=== PATIENT | male | born 1975 | race Caucasian/White ===

== ENCOUNTER 2023-09-17 10:31 | Day surgery (SDC) | payer MEDICAID ==
[2023-09-09 15:38] LABS: BASOPHILS # (AUTO) 0.1 X10'3 (0-0.2); BASOPHILS % (AUTO) 0.6 % (0-1); EOSINOPHILS # (AUTO) 0.2 X10'3 (0-0.9); EOSINOPHILS % (AUTO) 1.7 % (0-6); LYMPHOCYTES # (AUTO) 3.7 X10'3 (1.1-4.8); LYMPHOCYTES % (AUTO) 33.7 % (21-51); MEAN CORPUSCULAR HEMOGLOBIN 26.3 PG (27.0-31.0); MEAN CORPUSCULAR HGB CONC 32.9 g/dL (33.0-36.5); MEAN CORPUSCULAR VOLUME 79.8 FL (78-98); MEAN PLATELET VOLUME 8.1 FL (7.4-10.4); MONOCYTES # (AUTO) 0.8 X10'3 (0-0.9); MONOCYTES % (AUTO) 6.9 % (2-12); NEUTROPHILS # (AUTO) 6.2 X10'3 (1.8-7.7); NEUTROPHILS % (AUTO) 57.1 % (42-75); PRE OP HEMATOCRIT 44.4 % (42.0-52.0); PRE OP HEMOGLOBIN 14.6 g/dL (14.0-17.9); PRE OP PLATELET COUNT 235 X10'3 (140-440); PRE OP WHITE BLOOD COUNT 10.9 10'3 (4.8-10.8); RED BLOOD COUNT 5.56 X10'6 (4.70-6.10)
[2023-09-09 15:44] LABS: ALBUMIN 3.8 G/DL (3.4-5.0); ALBUMIN/GLOBULIN RATIO 1.1 (1.1-1.5); ALKALINE PHOSPHATASE 69 IU/L (46-116); BLOOD UREA NITROGEN 16 MG/DL (7-18); BUN/CREATININE RATIO 16.8 (10.0-20.0); CALCIUM 8.5 MG/DL (8.5-10.1); CHLORIDE 102 MMOL/L (99-107); CREATININE 0.95 MG/DL (0.60-1.10); PRE OP ANION GAP 3 (8-16); PRE OP AST 19 U/L (10-37); PRE OP BILIRUB, TOTAL 0.3 MG/DL (0.0-1.0); PRE OP GLUCOSE 82 MG/DL (70-104); PRE OP POTASSIUM 3.8 MMOL/L (3.4-5.1); PRE OP SODIUM 136 MMOL/L (135-145); TOTAL CARBON DIOXIDE 30.8 MMOL/L (24-32); TOTAL PROTEIN 7.2 G/DL (6.4-8.2); eGFR 85 ML/MIN
[2023-09-09 15:57] LABS: PRE OP ALT 15 U/L (30-65)
[~2023-09-17] VITALS: Ht 180.3 cm; Wt 72.6 kg
[2023-09-17] VITALS (8 sets, daily range): BP systolic 115–138; BP diastolic 72–97; PULSE 51–87; RESP 9–20; TEMP 97.8; O2SAT 60–100
[~2023-09-17 10:31] MED LIST: ACET-890 PO; IBUP-1985 PO; NICO-687 TD; vitamin d PO
[2023-09-17] MEDS: famotidine 20mg tablet PO ONE (10:48)
[2023-09-17] MEDS: ringers solution, lacted 1,000 ML IV SCH (10:48)
[2023-09-17] MEDS ORDERED: sevoflurane 250ml liquid IH ONE (11:06)
[2023-09-17] MEDS ORDERED: proCHLORperazine 10 MG/2 ml inj IV PRN (11:10)
[2023-09-17] MEDS ORDERED: morphine 2 MG/ML inj. syringe IV PRN (11:10)
[2023-09-17] MEDS ORDERED: ondansetron/PF 4mg/2ml inj IV PRN (11:10)
[2023-09-17] MEDS ORDERED: meperidine/PF 25mg/ml syringe IV PRN ×3 (11:10)
[2023-09-17] MEDS ORDERED: ringers solution, lacted 1,000 ML IV SCH (11:10)
[2023-09-17] MEDS ORDERED: enalaprilat dihydrate 2.5mg/2ml vial IV PRN (11:10)
[2023-09-17] MEDS ORDERED: morphine 4 MG/ML inj SYRINge IV PRN (11:10)
[2023-09-17] MEDS ORDERED: labetalol 20mg/4ml (5mg/ml) syringe IV PRN (11:10)
[2023-09-17] MEDS ORDERED: fentaNYL/PF 50MCG/1 ML 2ML syringe ONE (11:11)
[2023-09-17] MEDS ORDERED: midazolam 1 mg/ML 2ml injection ONE (11:12)
[2023-09-17] MEDS ORDERED: rocuronium 10mg/ml inj IV ONE (11:13)
[2023-09-17] MEDS ORDERED: propofol inj 20 ML IV ONE (11:13)
[2023-09-17] MEDS ORDERED: ondansetron/PF 4mg/2ml inj ONE (11:53)
[2023-09-17] MEDS ORDERED: dexamethasone sod phosphate 4mg/ml inj. ONE (11:53)
== END 2023-09-17 13:24 | disposition home or self-care (01) ==
LOC: PAS 10:31
PROVIDERS: ATTEND Internal Medicine Critical Care Medicine
DX: R91.8 Other nonspecific abnormal finding of lung field (principal); R00.1 Bradycardia, unspecified; J43.9 Emphysema, unspecified; I20.9 Angina pectoris, unspecified; Z79.1 Long term (current) use of non-steroidal anti-inflammatories (NSAID); Z79.891 Long term (current) use of opiate analgesic; Z79.899 Other long term (current) drug therapy; Z98.890 Other specified postprocedural states
CPT/HCPCS: 31627; 31629; 31653; 36415; 71045; 71250; 80053; 82948; 85025; 87015; 87070; 87102; 87116; 87206; 93005; J1100; J2250; J2405; J2704; J2710; J3010; J3490; J7120; Z7506; Z7508; Z7512; A4618

== ENCOUNTER 2024-02-11 07:37 | Inpatient (IN) | payer MEDICAID ==
[2024-02-07 15:55] LABS: BASOPHILS # (AUTO) 0.1 X10'3 (0-0.2); BASOPHILS % (AUTO) 0.6 % (0-1); EOSINOPHILS # (AUTO) 0.1 X10'3 (0-0.9); EOSINOPHILS % (AUTO) 1.2 % (0-6); LYMPHOCYTES # (AUTO) 2.6 X10'3 (1.1-4.8); LYMPHOCYTES % (AUTO) 27.3 % (21-51); MEAN CORPUSCULAR HEMOGLOBIN 27.6 PG (27.0-31.0); MEAN CORPUSCULAR HGB CONC 33.5 g/dL (33.0-36.5); MEAN CORPUSCULAR VOLUME 82.6 FL (78-98); MEAN PLATELET VOLUME 8.2 FL (7.4-10.4); MONOCYTES # (AUTO) 0.6 X10'3 (0-0.9); MONOCYTES % (AUTO) 6.5 % (2-12); NEUTROPHILS # (AUTO) 6.2 X10'3 (1.8-7.7); NEUTROPHILS % (AUTO) 64.4 % (42-75); PRE OP HEMATOCRIT 44.6 % (42.0-52.0); PRE OP HEMOGLOBIN 14.9 g/dL (14.0-17.9); PRE OP PLATELET COUNT 243 X10'3 (140-440); PRE OP WHITE BLOOD COUNT 9.6 10'3 (4.8-10.8); RED CELL DISTRIBUTION WIDTH 14.1 % (11.5-14.5)
[2024-02-07 16:00] LABS: BILIRUBIN,URINE NEGATIVE (Neg); CLARITY,URINE CLEAR (Clear); COLOR,URINE YELLOW (Yellow); GLUCOSE, URINE NEGATIVE (Neg); KETONES,URINE NEGATIVE (Neg); LEUKOCYTE ESTERASE ,URINE NEGATIVE (Neg); NITRITES, URINE NEGATIVE (Neg); OCCULT BLOOD,URINE NEGATIVE (Neg); PH,URINE 5.5 (4.8-8.0); PROTEIN,URINE NEGATIVE (Neg); UROBILINOGEN,URINE 0.2 E.U/dL (0.2-1.0)
[2024-02-07 16:08] LABS: UA COLLECTION TYPE CLN CATCH MIDSTREAM
[2024-02-07 16:20] LABS: PRE OP PROTIME 10.1 SECONDS (9.0-12.0)
[2024-02-07 16:21] LABS: ALBUMIN 3.8 G/DL (3.4-5.0); ALBUMIN/GLOBULIN RATIO 1.2 (1.1-1.5); ALKALINE PHOSPHATASE 72 IU/L (46-116); BLOOD UREA NITROGEN 14 MG/DL (7-18); BUN/CREATININE RATIO 15.6 (10.0-20.0); CALCIUM 9.1 MG/DL (8.5-10.1); CHLORIDE 105 MMOL/L (99-107); PRE OP ALT 22 U/L (30-65); PRE OP ANION GAP 9 (8-16); PRE OP AST 16 U/L (10-37); PRE OP BILIRUB, TOTAL 0.3 MG/DL (0.0-1.0); PRE OP GLUCOSE 92 MG/DL (70-104); PRE OP SODIUM 142 MMOL/L (135-145); TOTAL CARBON DIOXIDE 27.8 MMOL/L (24-32); eGFR 90 ML/MIN
[~2024-02-11] VITALS: Ht 180.3 cm; Wt 71.0 kg
[2024-02-11] VITALS (34 sets, daily range): BP systolic 105–154; BP diastolic 68–101; PULSE 65–97; RESP 10–27; TEMP 97.7–98.9; O2SAT 90–100
[2024-02-11] MEDS: ringers solution, lacted 1,000 ML IV SCH ×2 (05:30→13:08)
[2024-02-11] MEDS: BUPIVACAINE liposomal/PF 13.3 MG/ML vial IM ONE (07:27)
[2024-02-11] MEDS: BUPIVAcaine 2.5mg/ml inj 50ml vial (contains preservative) ONE (07:27)
[~2024-02-11 07:37] MED LIST changes: -ACET-890 PO; -vitamin d PO
[2024-02-11] MEDS: INDOCYANINE GREEN 25 MG/10 ML VIAL IV ONE (08:40)
[2024-02-11] MEDS: cefazolin 2gm/D5W 100mL 100 ML IV ONE (08:40)
[2024-02-11] MEDS ORDERED: sterile Talc 2 GM powder vial ONE (09:00)
[2024-02-11] MEDS: famotidine 20mg tablet PO ONE (09:01)
[2024-02-11] MEDS ORDERED: fentaNYL /PF 50mcg/ml 5ml ampule ONE (09:28)
[2024-02-11] MEDS ORDERED: midazolam 1 mg/ML 2ml injection ONE (09:28)
[2024-02-11] MEDS ORDERED: acetaminophen 1,000mg/100ml IV 100 ML IV ONE (09:29)
[2024-02-11] MEDS ORDERED: propofol inj 20 ML IV ONE (09:30)
[2024-02-11] MEDS ORDERED: rocuronium 10mg/ml inj IV ONE ×2 (09:30)
[2024-02-11] MEDS ORDERED: dexamethasone sod phosphate 4mg/ml inj. ONE (09:30)
[2024-02-11] MEDS ORDERED: LIDOcaine 2% (20mg/ml) 5ml vial ONE (09:30)
[2024-02-11] MEDS ORDERED: sevoflurane 250ml liquid IH ONE (09:40)
[2024-02-11] MEDS ORDERED: ondansetron/PF 4mg/2ml inj ONE (10:24)
[2024-02-11] MEDS ORDERED: labetalol 20mg/4ml (5mg/ml) syringe IV ONE (10:36)
[2024-02-11] MEDS ORDERED: sugammadex 200mg/2ml injection IV ONE (11:53)
[2024-02-11] MEDS ORDERED: ketorolac trometh 15mg/ml vial 15 MG/ML ML IV PRN (12:25)
[2024-02-11] MEDS ORDERED: ondansetron/PF 4mg/2ml inj IV PRN ×2 (12:25→12:45)
[2024-02-11] MEDS ORDERED: metoclopramide 5 mg/ml inj IV PRN (12:25)
[2024-02-11] MEDS: morphine 4 MG/ML inj SYRINge IV PRN ×2 (12:37→12:59)
[2024-02-11] MEDS ORDERED: fentaNYL/PF 50MCG/1 ML 2ML syringe IV PRN ×2 (12:45)
[2024-02-11] MEDS ORDERED: morphine 2 MG/ML inj. syringe IV PRN (12:45)
[2024-02-11] MEDS ORDERED: hydrALAZINE 20mg/ml inj. IV PRN (12:45)
[2024-02-11] MEDS ORDERED: labetalol 20mg/4ml (5mg/ml) syringe IV PRN (12:45)
[2024-02-11 12:48] LABS: ABG OXYGEN SATURATION 97.8 % (94.0-98.0); ABG PCO2 (T) 40.7 mmHg (35.0-48.0); ABG PH (T) 7.344 (7.350-7.450); ABG PO2 (T) 94.2 mmHg (83.0-108.0); FCOHb 2.1 % (0.5-1.5); FHHb 2.1 % (0.0-5.0); FMetHb 0.3 % (0.0-1.5); FO2Hb 95.5 % (94.0-98.0); MODE MASK - SIMPLE; PATIENT TEMPERATURE 35.4; TOTAL HEMOGLOBIN 15.7 G/dl (13.5-17.5)
[2024-02-11] MEDS: ketorolac trometh 30MG/ML vial 30 MG/ML VIAL IV PRN (12:59)
[2024-02-11] MEDS: albuterol 2.5 MG/3 ML nebule NEB ONE (13:33)
[2024-02-11] MEDS ORDERED: naloxone 0.4 mg/ml inj IV PRN (13:55)
[2024-02-11] MEDS: normal saline 1000ml 1,000 ML IV SCH (13:55)
[2024-02-11] MEDS: HYDROmorph/NS 0.2 mg/ml PCA 100 ML IV SCH ×2 (14:31→20:56)
[2024-02-11] MEDS: potassium Cl 20mEq in D5-NS 1,000 ML IV SCH (18:12)
[2024-02-11] MEDS: sennosides/docusate sodium tablet PO SCH (20:24)
[2024-02-11] MEDS: docusate sod 100mg capsule PO SCH (20:24)
[2024-02-11] MEDS: ceFAZolin inj. 1,000 MG in dextrose 5%-water 50ml 50 ML IV SCH (20:24)
[2024-02-11] MEDS: gabapentin 300mg capsule PO SCH (20:24)
[2024-02-12] VITALS (14 sets, daily range): BP systolic 105–123; BP diastolic 70–84; PULSE 73–88; RESP 12–22; TEMP 97.5–98.3; O2SAT 84–97
[2024-02-12 05:40] LABS: BASOPHILS % (AUTO) 0.3 % (0-1); EOSINOPHILS % (AUTO) 0 % (0-6); HEMATOCRIT 42.7 % (42.0-52.0); HEMOGLOBIN 13.8 g/dl (14.0-17.9); LYMPHOCYTES # (AUTO) 2.4 X10'3 (1.1-4.8); LYMPHOCYTES % (AUTO) 18.2 % (21-51); MEAN CORPUSCULAR HEMOGLOBIN 26.4 PG (27.0-31.0); MEAN CORPUSCULAR HGB CONC 32.3 g/dL (33.0-36.5); MEAN CORPUSCULAR VOLUME 81.8 FL (78-98); MEAN PLATELET VOLUME 8.1 FL (7.4-10.4); MONOCYTES # (AUTO) 0.9 X10'3 (0-0.9); MONOCYTES % (AUTO) 7.1 % (2-12); NEUTROPHILS # (AUTO) 9.9 X10'3 (1.8-7.7); NEUTROPHILS % (AUTO) 74.4 % (42-75); PLATELET COUNT 254 X10'3 (140-440); RED BLOOD COUNT 5.22 X10'6 (4.70-6.10); RED CELL DISTRIBUTION WIDTH 13.7 % (11.5-14.5); WHITE BLOOD COUNT 13.3 X10'3 (4.5-11.0)
[2024-02-12 06:06] LABS: ALANINE AMINOTRANSFERASE 21 U/L (12-78); ALBUMIN 3.3 G/DL (3.4-5.0); ALBUMIN/GLOBULIN RATIO 0.9 (1.1-1.5); ALKALINE PHOSPHATASE 60 IU/L (46-116); ANION GAP 8 (8-16); ASPARTATE AMINO TRANSFERASE 29 U/L (10-37); BILIRUBIN,TOTAL 0.4 MG/DL (0.1-1.0); BLOOD UREA NITROGEN 11 MG/DL (7-18); BUN/CREATININE RATIO 13.9 (10.0-20.0); CALCIUM 8.8 MG/DL (8.5-10.1); CHLORIDE 102 MMOL/L (99-107); CREATININE 0.79 MG/DL (0.60-1.10); GLUCOSE 131 MG/DL (70-104); MAGNESIUM 1.8 MG/DL (1.5-2.4); PHOSPHORUS 2.5 MG/DL (2.3-4.5); POTASSIUM 4.2 MMOL/L (3.5-5.1); SODIUM 137 MMOL/L (135-145); TOTAL CARBON DIOXIDE 26.9 MMOL/L (24-32); TOTAL PROTEIN 6.8 G/DL (6.4-8.2); eCRCL 115 ML/MIN; eGFR > 90 ML/MIN
[2024-02-12] MEDS: nicotine 21mg patch - 24 hr TD SCH (14:41)
[2024-02-12] MEDS: ceFAZolin/D5W- 1GM premix 50 ML IV SCH (17:13)
[2024-02-13] VITALS (10 sets, daily range): BP systolic 106–130; BP diastolic 69–80; PULSE 75–94; RESP 11–18; TEMP 97.3–100.4; O2SAT 93–95
[2024-02-13] MEDS: PCA WASTE DOCUMENTATION 1 MG ML MC SCH (00:13)
[2024-02-13 07:08] LABS: BASOPHILS % (AUTO) 0.4 % (0-1); EOSINOPHILS # (AUTO) 0.1 X10'3 (0-0.9); EOSINOPHILS % (AUTO) 0.5 % (0-6); HEMATOCRIT 40.2 % (42.0-52.0); HEMOGLOBIN 13.1 g/dl (14.0-17.9); LYMPHOCYTES # (AUTO) 3.2 X10'3 (1.1-4.8); LYMPHOCYTES % (AUTO) 28.8 % (21-51); MEAN CORPUSCULAR HEMOGLOBIN 26.9 PG (27.0-31.0); MEAN CORPUSCULAR HGB CONC 32.5 g/dL (33.0-36.5); MEAN CORPUSCULAR VOLUME 82.7 FL (78-98); MEAN PLATELET VOLUME 8.5 FL (7.4-10.4); MONOCYTES # (AUTO) 0.9 X10'3 (0-0.9); MONOCYTES % (AUTO) 8.4 % (2-12); NEUTROPHILS # (AUTO) 6.8 X10'3 (1.8-7.7); NEUTROPHILS % (AUTO) 61.9 % (42-75); PLATELET COUNT 230 X10'3 (140-440); RED BLOOD COUNT 4.86 X10'6 (4.70-6.10); RED CELL DISTRIBUTION WIDTH 13.7 % (11.5-14.5)
[2024-02-13 07:46] LABS: ALANINE AMINOTRANSFERASE 22 U/L (12-78); ALBUMIN 3.1 G/DL (3.4-5.0); ALBUMIN/GLOBULIN RATIO 0.9 (1.1-1.5); ALKALINE PHOSPHATASE 54 IU/L (46-116); ANION GAP 8 (8-16); ASPARTATE AMINO TRANSFERASE 29 U/L (10-37); BILIRUBIN,TOTAL 0.5 MG/DL (0.1-1.0); BLOOD UREA NITROGEN 10 MG/DL (7-18); BUN/CREATININE RATIO 15.4 (10.0-20.0); CALCIUM 8.9 MG/DL (8.5-10.1); CHLORIDE 102 MMOL/L (99-107); CREATININE 0.65 MG/DL (0.60-1.10); GLUCOSE 104 MG/DL (70-104); MAGNESIUM 1.7 MG/DL (1.5-2.4); PHOSPHORUS 2.8 MG/DL (2.3-4.5); SODIUM 137 MMOL/L (135-145); TOTAL CARBON DIOXIDE 26.7 MMOL/L (24-32); TOTAL PROTEIN 6.7 G/DL (6.4-8.2); eCRCL 140 ML/MIN; eGFR > 90 ML/MIN
[2024-02-13 07:49] LABS: POTASSIUM 4.5 MMOL/L (3.5-5.1)
[2024-02-13] MEDS ORDERED: nicotine 21mg patch - 24 hr TD SCH (14:00)
[2024-02-13] MEDS: HYDROcodone/acetaminophen 10/325mg tab PO PRN ×2 (14:13→20:15)
[2024-02-13] MEDS: albuterol 2.5 MG/3 ML nebule NEB PRN (19:43)
[2024-02-13] MEDS: morphine 2 MG/ML inj. syringe IV PRN (23:20)
[2024-02-14] VITALS (10 sets, daily range): BP systolic 100–122; BP diastolic 67–81; PULSE 60–80; RESP 11–18; TEMP 97.3–98.5; O2SAT 94–98
[2024-02-14 06:36] LABS: BASOPHILS % (AUTO) 0.3 % (0-1); EOSINOPHILS # (AUTO) 0.1 X10'3 (0-0.9); EOSINOPHILS % (AUTO) 1.3 % (0-6); HEMATOCRIT 41.4 % (42.0-52.0); HEMOGLOBIN 13.4 g/dl (14.0-17.9); LYMPHOCYTES # (AUTO) 3.2 X10'3 (1.1-4.8); LYMPHOCYTES % (AUTO) 28.3 % (21-51); MEAN CORPUSCULAR HEMOGLOBIN 26.9 PG (27.0-31.0); MEAN CORPUSCULAR HGB CONC 32.3 g/dL (33.0-36.5); MEAN CORPUSCULAR VOLUME 83.1 FL (78-98); MEAN PLATELET VOLUME 8.3 FL (7.4-10.4); MONOCYTES % (AUTO) 8.5 % (2-12); NEUTROPHILS % (AUTO) 61.6 % (42-75); PLATELET COUNT 237 X10'3 (140-440); RED BLOOD COUNT 4.98 X10'6 (4.70-6.10); RED CELL DISTRIBUTION WIDTH 13.5 % (11.5-14.5); WHITE BLOOD COUNT 11.3 X10'3 (4.5-11.0)
[2024-02-14 06:48] LABS: ALANINE AMINOTRANSFERASE 21 U/L (12-78); ALBUMIN 3.1 G/DL (3.4-5.0); ALBUMIN/GLOBULIN RATIO 0.8 (1.1-1.5); ALKALINE PHOSPHATASE 59 IU/L (46-116); ANION GAP 6 (8-16); ASPARTATE AMINO TRANSFERASE 20 U/L (10-37); BILIRUBIN,TOTAL 0.7 MG/DL (0.1-1.0); BLOOD UREA NITROGEN 11 MG/DL (7-18); BUN/CREATININE RATIO 14.5 (10.0-20.0); CALCIUM 9.2 MG/DL (8.5-10.1); CHLORIDE 101 MMOL/L (99-107); CREATININE 0.76 MG/DL (0.60-1.10); GLUCOSE 101 MG/DL (70-104); MAGNESIUM 1.7 MG/DL (1.5-2.4); POTASSIUM 4.4 MMOL/L (3.5-5.1); SODIUM 138 MMOL/L (135-145); TOTAL CARBON DIOXIDE 30.9 MMOL/L (24-32); eCRCL 119 ML/MIN; eGFR > 90 ML/MIN
[2024-02-14] MEDS: ceFAZolin/D5W- 1GM premix 50 ML IV SCH (16:43)
[2024-02-14] MEDS ORDERED: magnesium hydroxide 30ml (MOM) UD suspension PO ONE (20:55)
[2024-02-14] MEDS ORDERED: magnesium hydroxide 30ml (MOM) UD suspension PO PRN (21:45)
[2024-02-15] VITALS (11 sets, daily range): BP systolic 108–126; BP diastolic 73–80; PULSE 66–97; RESP 15–22; TEMP 97.6–108; O2SAT 90–97
[2024-02-15 06:33] LABS: BASOPHILS % (AUTO) 0.4 % (0-1); EOSINOPHILS # (AUTO) 0.3 X10'3 (0-0.9); EOSINOPHILS % (AUTO) 2.9 % (0-6); HEMOGLOBIN 13.8 g/dl (14.0-17.9); LYMPHOCYTES % (AUTO) 28.3 % (21-51); MEAN CORPUSCULAR HEMOGLOBIN 26.7 PG (27.0-31.0); MEAN CORPUSCULAR HGB CONC 32.8 g/dL (33.0-36.5); MEAN CORPUSCULAR VOLUME 81.5 FL (78-98); MEAN PLATELET VOLUME 8.1 FL (7.4-10.4); MONOCYTES # (AUTO) 0.8 X10'3 (0-0.9); MONOCYTES % (AUTO) 7.3 % (2-12); NEUTROPHILS # (AUTO) 6.5 X10'3 (1.8-7.7); NEUTROPHILS % (AUTO) 61.1 % (42-75); PLATELET COUNT 264 X10'3 (140-440); RED BLOOD COUNT 5.15 X10'6 (4.70-6.10); RED CELL DISTRIBUTION WIDTH 13.4 % (11.5-14.5); WHITE BLOOD COUNT 10.6 X10'3 (4.5-11.0)
[2024-02-15 06:52] LABS: ALANINE AMINOTRANSFERASE 21 U/L (12-78); ALBUMIN 3.1 G/DL (3.4-5.0); ALBUMIN/GLOBULIN RATIO 0.8 (1.1-1.5); ALKALINE PHOSPHATASE 61 IU/L (46-116); ANION GAP 10 (8-16); ASPARTATE AMINO TRANSFERASE 19 U/L (10-37); BILIRUBIN,TOTAL 0.6 MG/DL (0.1-1.0); BLOOD UREA NITROGEN 13 MG/DL (7-18); BUN/CREATININE RATIO 20.6 (10.0-20.0); CALCIUM 9.1 MG/DL (8.5-10.1); CHLORIDE 100 MMOL/L (99-107); CREATININE 0.63 MG/DL (0.60-1.10); GLUCOSE 104 MG/DL (70-104); MAGNESIUM 1.8 MG/DL (1.5-2.4); PHOSPHORUS 3.9 MG/DL (2.3-4.5); SODIUM 136 MMOL/L (135-145); TOTAL CARBON DIOXIDE 26.3 MMOL/L (24-32); TOTAL PROTEIN 7.1 G/DL (6.4-8.2); eCRCL 144 ML/MIN; eGFR > 90 ML/MIN
[2024-02-16] VITALS (11 sets, daily range): BP systolic 114–138; BP diastolic 73–88; PULSE 65–79; RESP 15–23; TEMP 97.3–98.7; O2SAT 92–98
[2024-02-16 07:08] LABS: BASOPHILS # (AUTO) 0.1 X10'3 (0-0.2); BASOPHILS % (AUTO) 0.5 % (0-1); EOSINOPHILS # (AUTO) 0.3 X10'3 (0-0.9); EOSINOPHILS % (AUTO) 2.3 % (0-6); HEMATOCRIT 43.1 % (42.0-52.0); HEMOGLOBIN 13.9 g/dl (14.0-17.9); LYMPHOCYTES # (AUTO) 2.8 X10'3 (1.1-4.8); LYMPHOCYTES % (AUTO) 22.7 % (21-51); MEAN CORPUSCULAR HEMOGLOBIN 26.3 PG (27.0-31.0); MEAN CORPUSCULAR HGB CONC 32.2 g/dL (33.0-36.5); MEAN CORPUSCULAR VOLUME 81.7 FL (78-98); MEAN PLATELET VOLUME 8.2 FL (7.4-10.4); MONOCYTES % (AUTO) 8.2 % (2-12); NEUTROPHILS % (AUTO) 66.3 % (42-75); PLATELET COUNT 296 X10'3 (140-440); RED BLOOD COUNT 5.27 X10'6 (4.70-6.10); RED CELL DISTRIBUTION WIDTH 13.2 % (11.5-14.5); WHITE BLOOD COUNT 12.1 X10'3 (4.5-11.0)
[2024-02-16 07:39] LABS: ALANINE AMINOTRANSFERASE 19 U/L (12-78); ALBUMIN/GLOBULIN RATIO 0.7 (1.1-1.5); ALKALINE PHOSPHATASE 66 IU/L (46-116); ANION GAP 10 (8-16); ASPARTATE AMINO TRANSFERASE 14 U/L (10-37); BILIRUBIN,TOTAL 0.6 MG/DL (0.1-1.0); BLOOD UREA NITROGEN 16 MG/DL (7-18); BUN/CREATININE RATIO 22.9 (10.0-20.0); CALCIUM 9.1 MG/DL (8.5-10.1); CHLORIDE 100 MMOL/L (99-107); GLUCOSE 99 MG/DL (70-104); MAGNESIUM 1.9 MG/DL (1.5-2.4); PHOSPHORUS 3.7 MG/DL (2.3-4.5); POTASSIUM 4.1 MMOL/L (3.5-5.1); SODIUM 135 MMOL/L (135-145); TOTAL PROTEIN 7.2 G/DL (6.4-8.2); eCRCL 130 ML/MIN; eGFR > 90 ML/MIN
[2024-02-17] VITALS (7 sets, daily range): BP systolic 107–116; BP diastolic 69–76; PULSE 58–82; RESP 16–20; TEMP 97.2–97.6; O2SAT 91–96
== END 2024-02-17 15:01 | disposition home or self-care (01) | DRG 121 ==
LOC: PAS IN 07:37 → PCU 3S 15:39
PROVIDERS: ADMIT Surgery; ATTEND Surgery
PROC: 0BNC4ZZ Release Right Upper Lung Lobe, Percutaneous Endoscopic Approach (ICD-10-PCS; 2024-02-11)
PROC: 8E0W4CZ Robotic Assisted Procedure of Trunk Region, Percutaneous Endoscopic Approach (ICD-10-PCS; 2024-02-11)
PROC: 0W9930Z Drainage of Right Pleural Cavity with Drainage Device, Percutaneous Approach (ICD-10-PCS; 2024-02-11)
PROC: 0BBC4ZZ Excision of Right Upper Lung Lobe, Percutaneous Endoscopic Approach (ICD-10-PCS; principal; 2024-02-11 09:40)
DX: R91.8 Other nonspecific abnormal finding of lung field (principal); J94.8 Other specified pleural conditions
CPT/HCPCS: 36415; 36600; 71045; 71046; 71250; 80053; 81003; 82803; 82948; 83735; 84100; 85018; 85025; 85610; 85730; 86885; 86900; 86901; 87081; 93005; 94640; 94760; 97110; 97116; 97161; 97530; A4314; A4615; A4618; A6223; A6253; A6258; A6449; A7000; A7048; C1758; C9250; C9290; G0378; J0131; J0360; J0690; J1100; J1170; J1885; J2250; J2270; J2405; J2704; J3010; J3480; J3490; J7030; J7040; J7060; J7120

== ENCOUNTER 2024-02-24 15:01 | Emergency (ER) | payer MEDICAID ==
[~2024-02-24] VITALS: Ht 180.3 cm; Wt 72.7 kg
[2024-02-24] MEDS: HYDROmorphone 1 mg/ml syringe IM ONE (20:38)
[2024-02-24 21:31] VITALS: BP 115/68; PULSE 44; RESP 16; TEMP 97.9; O2SAT 98
== END 2024-02-24 21:34 | disposition home or self-care (01) ==
LOC: ER 15:01
DX: R91.8 Other nonspecific abnormal finding of lung field (principal); Z79.899 Other long term (current) drug therapy
CPT/HCPCS: 71045; 96372; 99284; J1170